=== PATIENT | male | born 1970 | race Caucasian/White ===

== ENCOUNTER 2017-08-04 10:54 | Outpatient (CLI) | payer OTHER ==
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
== END 2017-08-04 10:55 | disposition home or self-care (01) ==
LOC: SCSMRI 10:54
DX: M21.862 Other specified acquired deformities of left lower leg (principal); M17.12 Unilateral primary osteoarthritis, left knee; S83.242A Other tear of medial meniscus, current injury, left knee, initial encounter